=== PATIENT | female | born 1960 | race Caucasian/White ===

== ENCOUNTER → 2018-03-03 | Outpatient (CLI) | payer OTHER ==
--- NOTE | 2018-03-03 23:59 | Diagnostic Imaging Report ---
MRI SPINE LUMBAR WO HISTORY: Low back, right leg pain COMPARISON: None. TECHNIQUE: Sagittal T1, sagittal T2, sagittal STIR, axial T2, coronal T2, and axial proton density weighted images of the lumbar spine were obtained without contrast. DISCUSSION: Number of non-rib bearing lumbar vertebral bodies: 5. Alignment: Straightening of the lumbar lordosis. No scoliosis. Vertebrae: A few scattered small nodular T1 hyperintense vertebral body lesions are likely benign hemangiomas. Otherwise, no definite evidence for fractures, infection or neoplasm. Conus medullaris: Normal, ends at L1. Cauda equina: No masses or arachnoiditis. Posterior paraspinal muscles: Well preserved. No signal abnormalities. Soft tissues: No signal abnormalities. There is mild disc degeneration at L4-L5. T12-L1: Patent canal and foramina. L1-L2: Patent canal and foramina. L2-L3: Patent canal and foramina. L3-L4: Disc bulge without significant canal or foraminal stenosis. L4-L5: Mild canal stenosis due to asymmetric disc bulge towards the right and ligamentum flavum thickening. The right lateral recess is slightly effaced. The disc bulge contacts the descending right L5 nerve root. Mild bilateral foraminal stenoses due to disc bulge and facet arthrosis. There is mild periarticular edema along the bilateral L4-L5 facet joints with small bilateral facet effusions. L5-S1: Patent canal and foramina. IMPRESSION: 1. Mild L4-L5 disc degeneration. 2. Mild L4-L5 canal stenosis due to asymmetric disc bulge towards the right and ligamentum flavum thickening. The disc bulge contacts the descending right L5 nerve root. 3. Mild bilateral degenerative foraminal stenoses at L4-L5. 4. Mild bilateral L4-L5 facet synovitis. Signed by: Dr. Agustin Johnson M.D. on 03/03/2018 11:56 PM
== END ==
LOC: MRI 11:08
PROVIDERS: ATTEND Family Medicine
DX: M54.41 Lumbago with sciatica, right side (principal)
CPT/HCPCS: 72148

== ENCOUNTER → 2019-12-26 | Outpatient (CLI) | payer OTHER ==
--- NOTE | 2019-12-26 14:22 | Diagnostic Imaging Report ---
Examination: MRI SPINE LUMBAR WO CONTRAST History: ^LUMBAR SPINAL STENOSIS; low back pain for the past 2 years Comparison studies: Lumbar spine MRI performed March 03, 2018. Technique: Sagittal, coronal and axial T2 , sagittal T1 and STIR; axial spin density oblique. Findings: Number of lumbar vertebral bodies: Five. Alignment: Normal lordosis. No scoliosis. Soft tissues: No T2 hyperintense inflammatory changes. Posterior paraspinal soft tissues and muscles: No abnormality. Lower thoracic cord: Normal in signal and morphology. The tip of the conus is at L1. Cauda equina: No masses. No arachnoiditis. Vertebrae: No fractures, infection or neoplasm. Again demonstrated are scattered T1 hyperintense and STIR hypointense lesions throughout the lumbar vertebrae with the largest seen in L3 that measures 2.1 cm in craniocaudal dimension. Degenerative changes: L1-L2: No abnormalities. L2-L3: No abnormalities. L3-L4: Mild diffuse disc bulge. No foraminal or canal stenosis. L4-L5: Diffuse disc bulge, ligamentum flavum thickening and bilateral facet arthropathy result in mild canal stenosis and moderate right lateral recess narrowing with contact of the descending right L5 nerve root. Mild bilateral neural foraminal narrowing. Trace bilateral facet joint effusions without periarticular edema. L5-S1: No abnormalities. IMPRESSION: Slight improvement in the right lateral recess narrowing at L4-L5 which is now of a moderate degree, but with continued contact of the descending right L5 nerve root when compared to prior lumbar spine MRI performed March 03, 2018. Interval resolution of periarticular edema in the facet joints at L4-L5, but unchanged trace bilateral facet joint effusions. Unchanged mild canal stenosis at L4-L5. Signed by: Dr. Emilie Silva M.D. on 12/26/2019 2:18 PM
== END ==
LOC: MRI 09:24
PROVIDERS: ATTEND Family Medicine
DX: M48.061 Spinal stenosis, lumbar region without neurogenic claudication (principal)
CPT/HCPCS: 72148

== ENCOUNTER 2021-11-07 19:41 | Emergency (ER) | payer BC, OTHER ==
[2021-11-07 22:20] LABS: BASOPHILS % 0.4 % (0.0-1.0); EOSINOPHILS # (AUTO) 0.1 (0.0-0.4); EOSINOPHILS % 1.2 % (0.0-6.0); HEMATOCRIT 41.7 % (34.2-44.1); LYMPHOCYTES # (AUTO) 2.6 (1.0-3.2); LYMPHOCYTES % 39.2 % (18.0-39.1); MEAN CORPUSCULAR HEMOGLOBIN 30.3 pg (28-32); MEAN CORPUSCULAR HGB CONC 33.6 g/dL (31-35); MEAN CORPUSCULAR VOLUME 90.3 fL (81-99); MONOCYTES # (AUTO) 0.5 (0.2-0.8); MONOCYTES % 7.6 % (4.4-11.3); NEUTROPHILS # (AUTO) 3.5 (2.1-6.9); NEUTROPHILS % 51.5 % (38.7-80.0); PLATELET COUNT 272 x10e3/uL (140-360); RED BLOOD COUNT 4.62 x10e6/uL (3.6-5.1); RED CELL DISTRIBUTION WIDTH 12.6 % (11.7-14.4)
[2021-11-07 22:38] LABS: ALBUMIN 4.4 g/dL (3.5-5.0); ALBUMIN/GLOBULIN RATIO 1.3 (0.8-2.0); ANION GAP 17.8 mmol/L (8-16); CALCIUM 9.7 mg/dL (8.4-10.2); CREATININE, SERUM 0.82 mg/dL (0.57-1.11); POTASSIUM 3.8 mmol/L (3.5-5.1)
== END 2021-11-08 00:45 | disposition home or self-care (01) ==
LOC: ER 20:38
DX: G50.0 Trigeminal neuralgia (principal)
CPT/HCPCS: 36415; 70450; 70486; 70490; 80053; 85025; 99284